=== PATIENT | female | born 1950 | race Caucasian/White ===

== ENCOUNTER 2017-10-03 17:50 | Inpatient (IN) | payer OTHER ==
[~2017-10-03] VITALS: Ht 175.2 cm; Wt 87.5 kg
--- NOTE | ~2017-10-03 | PR ---
[place], [place] PROGRESS NOTE NAME: PAMELA MENARD UNIT #: [id number] ROOM: 311 DOCTOR: STEVE REBOLLEDO MD BIRTHDATE: [birth year] DOS: 10/05/2017 CHIEF COMPLAINT: "Are you the doctor, it's nice to meet you." SUMMARY OF THE VISIT: The patient was interviewed in the dining area where she reclined in a Atser chair watching television. She engaged readily in conversation. She continues to complain of depression and feels very sad and despondent. She also admits to fleeting auditory hallucinations, but denies that they are command in anyway. Sleep and appetite for the most part seem to be normalizing. However, she has episodes of extreme mood lability with verbal and physical aggressiveness and combativeness. Yesterday, she threw her lunch tray, broke dishes and became threatening towards staff. MENTAL STATUS EXAMINATION: This morning, she is alert and oriented to person, place and very approximate to time. Mood does still seem to be depressed and there does seem to be some mood lability present. She admits to continued auditory hallucinations, but is not able to elaborate what the voices are saying. Memory has some minor gaps. PLAN: I will go ahead and increase her Cymbalta from 30 to 60 mg a day to combat the depression, anxiety and pain. I will also increase Exelon patch from 4.6 mg daily to 9.5 mg daily in an effort to maximize potential benefit in improving ADL maintenance, behavior and cognition. I will plan ahead and order Invega Sustenna 234 mg IM to be given on October 07, maintain her current dose of Invega and Clozaril at this point. Monitor for risk, benefit, engage in individual and livingston milieu activity with the plan to return to [facility] when psychiatrically stable. STEVE REBOLLEDO MD CM:PNTRANS 1004 1019 STEVE REBOLLEDO MD 10/05/17 1016 interface
--- NOTE | ~2017-10-03 | PR ---
[place], [place] PROGRESS NOTE NAME: PAMELA MENARD UNIT #: [id number] ROOM: 316 DOCTOR: STEVE REBOLLEDO MD BIRTHDATE: [birth year] DOS: 10/08/2017 CHIEF COMPLAINT: "I want to go home soon." SUMMARY OF THE VISIT: The patient was interviewed in her bedroom. She reports to me that she is feeling better, that the auditory hallucinations have lessened. She is still feeling somewhat depressed, but some of this is now because she is isolated in her room and is homesick and wants to be able to go home soon. She reports improved sleep and appetite. She also denies any medication side effects. MENTAL STATUS: She is alert and oriented. There are some gaps noted. There is no hypomania or carole. There are no overt auditory or visual hallucinations. No delusions, no paranoia. Short term memory has gaps, otherwise she is intact. PLAN: At the present time, I will maintain her current psychotropic regimen, continue to engage in individual and livingston milieu activity with the ultimate plan to return to the least restrictive environment when psychiatrically stable. STEVE REBOLLEDO MD CM:PNTRANS 2 2 STEVE REBOLLEDO MD 10/08/17910 interface
--- NOTE | ~2017-10-03 | PR ---
[place], [place] PROGRESS NOTE NAME: PAMELA MENARD UNIT #: [id number] ROOM: 316 DOCTOR: STEVE REBOLLEDO MD BIRTHDATE: [birth year] DOS: 10/09/2017 CHIEF COMPLAINT: "I want to go home soon." SUMMARY OF THE VISIT: The patient was interviewed in her room. She rested quietly in bed. She had completed her breakfast and was engaging in conversation with me. She reports that she is feeling better that the depression is lifting and she is just homesick now. She notes no auditory hallucinations. She convincingly denies medication side effects. MENTAL STATUS: She is alert and oriented with time gaps. Mood does seem to be trending towards euthymia. Affect is more appropriate. There is no carole or hypomania. There are no overt auditory or visual hallucinations, delusions or paranoia. Short-term memory has gaps, otherwise she is intact. PLAN: I will maintain her current psychotropic regimen, continue to engage in individual and livingston milieu activity with the ultimate plan to return to [facility] when psychiatrically stable. STEVE REBOLLEDO MD CM:PNTRANS [id number] STEVE REBOLLEDO MD 10/09/17 1039 interface
--- NOTE | ~2017-10-03 | PR ---
[place], [place] PROGRESS NOTE NAME: PAMELA MENARD UNIT #: [id number] ROOM: 311 DOCTOR: STEVE REBOLLEDO MD BIRTHDATE: [birth year] DOS: 10/06/2017 CHIEF COMPLAINT: "I feel better. I do not like the food here though." SUMMARY OF THE VISIT: The patient was interviewed as she reclined in a Aster chair watching television in the dining area. She reported to me that she is feeling better. She is sleeping well. She is eating well, although she did state that she does not like the food here as much as she likes it at [facility]. She reports that the auditory hallucinations have dissipated, although I do not trust her to be a good historian. She convincingly denies any medication side effects and no tardive dyskinesia, extrapyramidal symptoms, sedation or somnolence is noted. MENTAL STATUS: The patient is alert and oriented. Mood does seem to be trending towards euthymia. Affect is more appropriate. There is no carole or hypomania. She denies auditory or visual hallucinations. There is no paranoia. Memory for the most part is intact. PLAN: I will go ahead and load her today with Invega Sustenna 234 mg IM rather than waiting until tomorrow. This will allow me to do a secondary loading dose on Tuesday and return her back to [facility] quicker. She is tolerating the medication well, so I see no reason why we cannot speed the loading process. We will engage in individual and livingston milieu activity, returning then to [facility] when stable. STEVE REBOLLEDO MD CM:PNTRANS 4 5 STEVE REBOLLEDO MD 10/06/1724 interface
--- NOTE | ~2017-10-03 | DS ---
[place], [place] DISCHARGE SUMMARY NAME: PAMELA MENARD UNIT #: [id number] ROOM: 316 DOCTOR: STEVE REBOLLEDO MD BIRTHDATE: [birth year] DOS: 10/11/2017 CHIEF COMPLAINT: "Oh, I just want to sleep, leave me alone." HISTORY OF PRESENT ILLNESS: This is a 67-year-old white female who is a resident of [facility] in [place], [place]. The patient has a lengthy history of schizoaffective disorder and recently had a significant decline in mental status. The patient has been refusing to eat, refusing to attend to ADLs, refusing her medications. She has been throwing objects and responding to auditory hallucinations. Most recently, she was admitted to [facility] for similar behavioral disturbances and found to have UTI and was treated. She also had a nonocclusive DVT in her left upper extremity. She returned back to [facility] and was initially somewhat euthymic, but quickly decompensated to the point where she was again not sleeping and eating and again responding to auditory command hallucinations. Given the fact that she represented a significant harm to self and others, she was readmitted to the psych unit now here in [place] to rule out further organic factors and to stabilize on medication while we engage in individual and livingston milieu activity. PAST MEDICAL HISTORY: Remarkable for breast cancer, congestive heart failure, chronic kidney disease, COPD, hyperlipidemia, hypertension, GERD, gout, hypothyroidism, iron deficiency anemia, seizure disorder and her lengthy history of schizoaffective disorder with multiple psychiatric admissions. SUMMARY OF HOSPITAL COURSE: The patient was admitted to the unit where her Clozaril was changed from 100 mg twice daily to 200 mg at bedtime in an effort to simplify her drug regimen and decrease the possibility of daytime sedation. Cymbalta 30 mg at bedtime was added and quickly increased to a maximum of 90 mg a day in order to combat the depression as well as to decrease her pain, which she did state was one of the things that led her to be increasingly more agitated and upset. Given the fact that she becomes episodically noncompliant with her medicine, I did start her on Invega 6 mg in the morning and after several days loaded her with Invega Sustenna 234 mg IM and subsequently reloaded with 156 mg several days later. This had a dramatic improvement on her overall sense of well being. The auditory hallucinations completely ceased. She was able to attend her ADLs better. Sleep and appetite normalized. She was able to do groups and interact more appropriately. Towards the latter part of her stay, she was diagnosed with a urinary tract infection that required her to be in isolation. She remained in good spirits, continued to be compliant with all aspects of her care. The patient had improved sufficiently by October 11 to return back to [facility] where I will follow her upon her return. MENTAL STATUS AT DISCHARGE: The patient is alert and oriented with some time gaps. Mood is euthymic. Affect is appropriate. No carole or hypomania or psychosis is noted. No tardive dyskinesia, extrapyramidal symptoms, sedation or somnolence. Memory has some mild gaps, otherwise she is intact. DIAGNOSIS: Schizoaffective disorder. PLAN: All of her prescriptions have been e scribed to the institutional [place], [place] DISCHARGE SUMMARY NAME: PAMELA MENARD UNIT #: [id number] ROOM: [facility] DOCTOR: STEVE REBOLLEDO MD BIRTHDATE: [birth year] pharmacy, [facility]. The patient will return to [facility]. I will follow her upon her return. She is medically and psychiatrically stable and her psychosocial needs are being met adequately at [facility]. STEVE REBOLLEDO MD CM:BIN 1026 1037 STEVE REBOLLEDO MD 10/11/17 1034 interface
--- NOTE | ~2017-10-03 | PR ---
[place], [place] PROGRESS NOTE NAME: PAMELA MENARD UNIT #: [id number] ROOM: 311 DOCTOR: STEVE REBOLLEDO MD BIRTHDATE: [birth year] DOS: 10/07/2017 CHIEF COMPLAINT: "I am still so depressed." SUMMARY OF THE VISIT: The patient was interviewed in the dining area. She had completed her breakfast and was sitting watching television. She engaged readily in conversation. She reports that the auditory hallucinations have dissipated, but she is still feeling sad and depressed. Sleep and appetite vary. She does not feel like getting up and doing much or interacting with others. She convincingly denies medication side effects. MENTAL STATUS: She is alert and oriented with time gaps. Mood does still seem to be depressed. Affect is flat, blunted and constricted. She denies any psychotic symptoms and I see no carole or hypomania. She does have gaps in short term memory. PLAN: I will go ahead and maximize out the dose of Exelon patch from 9.5 to 13.3 daily. I will increase Cymbalta to 30 mg in the morning and 60 mg at night, combating the depressive symptomatology. She did receive her first dose of Invega Sustenna 234 mg on 10/06/2017. I will go ahead and give her secondary loading dose of Invega Sustenna 156 mg IM on 10/10/2017 and then order her followup Invega Sustenna 156 mg IM on 10/31/2017. We will continue to engage in individual and livingston milieu activities with the plan to return to the least restrictive environment when psychiatrically stable. STEVE REBOLLEDO MD CM:PNTRANS [id number] STEVE REBOLLEDO MD 10/07/17 0936 interface
--- NOTE | ~2017-10-03 | WRIGHTHP ---
[place], [place] PATIENT HISTORY AND PHYSICAL EXAM NAME: PAMELA MENARD UNIT #: [id number] ROOM: 311 DOCTOR: STEVE REBOLLEDO MD BIRTHDATE: [birth year] DOS: 10/04/2017 CHIEF COMPLAINT: "Oh, I just want to sleep leave me alone." HISTORY OF PRESENT ILLNESS: This is a 67-year-old white female who is a resident of [facility] in [place], [place]. The patient has a lengthy history of schizoaffective disorder and most recently had a significant change in mental status. She has been refusing to eat, refusing to attend to ADLs. She has been throwing objects and responding to auditory hallucinations. Most recently, she was admitted to [facility] for similar behavioral disturbances and found to have a UTI and was treated. She also had a nonocclusive DVT in the left upper extremity. She returned back to [facility] and initially was somewhat euthymic, but very quickly decompensated to the point where she was not sleeping, eating. She was responding to auditory hallucinations that were command in nature and following what the commands were telling her she was throwing herself to the ground. She represented a significant risk of harm to self and others and therefore was admitted to the behavioral healthcare unit to rule out further organic factors, to stabilize on medication, to engage in individual and livingston milieu activity with the plan to return to [facility] when psychiatrically stable. PAST MEDICAL HISTORY: Remarkable for breast cancer, congestive heart failure, chronic kidney disease, COPD, hyperlipidemia, hypertension, GERD, gout, hypothyroidism, iron deficiency anemia, seizure disorder and a lengthy history of schizoaffective disorder. MENTAL STATUS: My mental status was somewhat limited because the patient refused to cooperate. She did not even make eye contact, instead lay in bed with her back towards me. She was not agitated or aggressive in any manner, just rather dismissive. She preferred to have us leave and come back later. She was not interested in me obtaining her breakfast or anything to drink. She was rather short and terse. Beyond that, I could not obtain much information from her. DIAGNOSIS: Schizoaffective disorder. PLAN: I have moved her Clozaril from 100 mg b.i.d. to 200 mg at bedtime trying to lessen daytime sedation. I will add Cymbalta 30 mg at bedtime as an antidepressant and also as an agent to help decrease her pain. I have also added Invega 6 mg in the morning as an augmenting agent for the Clozaril to break the psychosis. My sense is because she is episodically noncompliant with her oral meds, I can utilize the Invega Sustenna to improve compliance. We will attempt at best to engage her in individual and livingston milieu activity, returning then to [facility] when stable. [place], [place] PATIENT HISTORY AND PHYSICAL EXAM NAME: PAMELA MENARD UNIT #: [id number] ROOM: 311 DOCTOR: STEVE REBOLLEDO MD BIRTHDATE: [birth year] STEVE REBOLLEDO MD CM:HISPHYS:PATIENT HISTORY AND PHYSICAL EXAMINATION 0942 1021 STEVE REBOLLEDO MD 10/04/17 1019 interface
--- NOTE | ~2017-10-03 | PR ---
[place], [place] PROGRESS NOTE NAME: PAMELA MENARD UNIT #: [id number] ROOM: 316 DOCTOR: STEVE ROCHA MD BIRTHDATE: [birth year] DOS: 10/10/2017 CHIEF COMPLAINT: "Hey, Dr. Rocha, am I gonna get to go home soon." SUMMARY OF THE VISIT: The patient was interviewed as she rested quietly in bed. She engaged readily in conversation and was bright, pleasant and cooperative. She offered no complaints, stating that she is sleeping well and eating well. She is just anxious to return back to [facility], which has been her home for many, many years. She does seem to be trending significantly towards euthymia. MENTAL STATUS: She is alert and oriented. Mood does seem to be more euthymic. Affect is more appropriate. There is no carole or hypomania. There are no psychotic symptoms. Memory for the most part is intact with some mild gaps. There is no tardive dyskinesia, extrapyramidal symptoms, or any other side effects noted from the medications themselves. PLAN: I will maintain her current psychotropic regimen, continue to attempt to engage in individual and livingston milieu activity with the plan to return back to [facility] when psychiatrically stable. STEVE ROCHA MD CM:PNTRANS [id number] STEVE ROCHA MD 10/10/17 1015 interface
[2017-10-03] MEDS ORDERED: ACIDOPHILUS1 EAC4 PO (18:02)
[2017-10-03] MEDS ORDERED: ALLOPURINOL100 MG PO (18:03)
[2017-10-03] MEDS ORDERED: LIPITOR20 MG PO (18:05)
[2017-10-03] MEDS ORDERED: PULMICORT RESP0.5 M1 INH (18:28)
[2017-10-03] MEDS ORDERED: CLOPIDOGREL75 MG PO (18:29)
[2017-10-03] MEDS ORDERED: CLOZAPINE100 MG PO (18:30)
[2017-10-03] MEDS ORDERED: DOCUSATE SODIU100 M2 PO (18:32)
[2017-10-03] MEDS ORDERED: DILANTIN100 MG PO (18:33)
[2017-10-03] MEDS ORDERED: ISOSORBIDE MONO30 MG PO (18:34)
[2017-10-03] MEDS ORDERED: LASIX40 MG PO (18:35)
[2017-10-03] MEDS ORDERED: LACTULOSE20 GM/30 M PO (18:35)
[2017-10-03] MEDS ORDERED: LETROZOLE2.5 MG PO (18:36)
[2017-10-03] MEDS ORDERED: MAGNESIUM400 MG PO (18:37)
[2017-10-03] MEDS ORDERED: LEVOTHYROXINE50 MCG PO (18:37)
[2017-10-03] MEDS ORDERED: PROTONIX40 MG PO (18:38)
[2017-10-03] MEDS ORDERED: MACROBID100 M1 PO (18:38)
[2017-10-03] MEDS ORDERED: TRAMADOL HCL50 MG PO (18:40)
[2017-10-03] MEDS ORDERED: ARICEPT5 M1 PO (18:42)
[2017-10-03] MEDS ORDERED: ROBITUSSIN5 ML PO (18:42)
[2017-10-03 23:59] VITALS: BP 112/60
[2017-10-04 00:57] VITALS: BP 112/60
[2017-10-04 07:30] LABS: BASO % 0.8 % (0.0-1.0); EOS # 0.2 10*3/uL (0.0-0.4); EOS % 3.7 % (1.0-4.0); HEMATOCRIT 36.3 % (37.0-47.0); HEMOGLOBIN 12.1 g/dl (12.0-16.0); LYMPH # 1.6 10*3/uL (1.3-4.4); LYMPH % 32.5 % (27.0-41.0); MEAN CELL VOLUME 98.6 fl (81.0-99.0); MEAN CORPUSCULAR HGB 32.9 pg (27.0-31.0); MEAN CORPUSCULAR HGB CONC 33.3 g/dl (33.0-37.0); MEAN PLATELET VOLUME 10.1 fl (9.6-12.3); MONO # 0.4 10*3/uL (0.1-1.0); MONO % 8.9 % (3.0-9.0); NEUT # 2.6 10*3/uL (2.3-7.9); NEUT % 53.5 % (47.0-73.0); PLATELET COUNT AUTOMATED 159 10*3/uL (130-400); RED BLOOD COUNT 3.68 10*6/uL (4.10-5.10); WHITE BLOOD COUNT 4.9 10*3/uL (4.8-10.8)
[2017-10-04 07:55] LABS: ALBUMIN 3.2 gm/dl (3.1-4.5); ALKALINE PHOSPHATASE 178 U/L (45-117); BUN 21 mg/dl (7-24); CHLORIDE 104 mmol/L (98-107); CHOLESTEROL 178 mg/dL (<200); CREATININE 1.08 mg/dL (0.55-1.02); HDL CHOLESTEROL 31 mg/dl (40-60); LDL CHOLESTEROL 102 mg/dL (9-159); POTASSIUM 4.4 mmol/L (3.5-5.1); SGOT/AST 78 IU/L (3-35); SGPT/ALT 99 U/L (12-78); SODIUM 140 mmol/L (136-145); TOTAL PROTEIN 7.1 gm/dL (6.4-8.2); TRIGLYCERIDES 223 mg/dl (<150); VLDL CHOLESTEROL 45 mg/dL (6-40)
[2017-10-04 07:56] LABS: PHENYTOIN (DILANTIN) 3.3 ug/ml (10-20)
[2017-10-04 08:04] VITALS: BP 118/66
[2017-10-04 08:27] LABS: VITAMIN D, 25-HYDROXY 32.1 ng/mL (30-100)
[2017-10-04 20:00] VITALS: BP 121/64
[2017-10-05 07:59] VITALS: BP 132/64
[2017-10-05 14:11] LABS: BILIRUBIN NEGATIVE (NEGATIVE); BLOOD NEGATIVE (NEGATIVE); CLARITY CLOUDY (CLEAR); COLOR YELLOW (YELLOW); GLUCOSE NEGATIVE (NEGATIVE); KETONE NEGATIVE (NEGATIVE); LEUKO ESTERASE 3+ (NEGATIVE); NITRITE POSITIVE (NEGATIVE); PH 5.5 (5.0-9.0); SPECIFIC GRAVITY 1.015 (1.005-1.030); UROBILINOGEN 0.2 E.U./dl (0.2-1.0)
[2017-10-05 14:18] LABS: BACTERIA 4+; EPITHELIAL CELLS 0-2; RBC 0-2 rbc/hpf (0-2); WBC TNTC wbc/hpf (0-5)
[2017-10-05 20:00] VITALS: BP 109/62
[2017-10-06 08:00] VITALS: BP 110/64
[2017-10-06 19:59] VITALS: BP 122/80
[2017-10-07 07:37] VITALS: BP 112/74
[2017-10-07 20:00] VITALS: BP 114/76
[2017-10-08 07:57] VITALS: BP 150/88
[2017-10-08 20:00] VITALS: BP 148/76
[2017-10-09 08:11] VITALS: BP 152/86
[2017-10-09 20:34] VITALS: BP 118/70
[2017-10-10 07:03] LABS: BASO % 0.2 % (0.0-1.0); EOS # 0.2 10*3/uL (0.0-0.4); EOS % 1.8 % (1.0-4.0); LYMPH # 1.7 10*3/uL (1.3-4.4); LYMPH % 20.3 % (27.0-41.0); MONO # 0.6 10*3/uL (0.1-1.0); MONO % 7.2 % (3.0-9.0); NEUT # 5.8 10*3/uL (2.3-7.9); NEUT % 69.8 % (47.0-73.0); WHITE BLOOD COUNT 8.4 10*3/uL (4.8-10.8)
[2017-10-10 07:48] VITALS: BP 120/76
[2017-10-10 19:50] VITALS: BP 125/78
[2017-10-11 07:40] VITALS: BP 122/78
[2017-10-11] MEDS ORDERED: CLOZAPINE100 MG PO (10:19)
[2017-10-11] MEDS ORDERED: DULOXETINE HCL30 MG PO (10:19)
[2017-10-11] MEDS ORDERED: LACTULOSE20 GM/30 M PO (10:19)
[2017-10-11] MEDS ORDERED: EXELON13.3 MG/21 T (10:19)
[2017-10-11] MEDS ORDERED: DULOXETINE HCL60 MG PO (10:19)
[2017-10-11] MEDS ORDERED: PALIPERIDONE ER6 MG PO (10:19)
[2017-10-11] MEDS ORDERED: INVEGA SUSTENN156 MG IM (10:19)
== END 2017-10-11 15:15 | DRG 885 ==
LOC: 3N 17:50
PROVIDERS: Psychiatry & Neurology Psychiatry
DX: F25.9 Schizoaffective disorder, unspecified (principal); I50.9 Heart failure, unspecified; J44.9 Chronic obstructive pulmonary disease, unspecified; I13.0 Hypertensive heart and chronic kidney disease with heart failure and stage 1 through stage 4 chronic kidney disease, or unspecified chronic kidney disease; D50.9 Iron deficiency anemia, unspecified; E03.9 Hypothyroidism, unspecified; E78.5 Hyperlipidemia, unspecified; F17.210 Nicotine dependence, cigarettes, uncomplicated; N39.0 Urinary tract infection, site not specified; F29 Unspecified psychosis not due to a substance or known physiological condition; K21.9 Gastro-esophageal reflux disease without esophagitis; N18.9 Chronic kidney disease, unspecified; M10.9 Gout, unspecified; F32.9 Major depressive disorder, single episode, unspecified; F41.9 Anxiety disorder, unspecified; B96.20 Unspecified Escherichia coli [E. coli] as the cause of diseases classified elsewhere; G40.909 Epilepsy, unspecified, not intractable, without status epilepticus; Z16.12 Extended spectrum beta lactamase (ESBL) resistance; Z85.3 Personal history of malignant neoplasm of breast; Z87.440 Personal history of urinary (tract) infections; Z86.718 Personal history of other venous thrombosis and embolism; Z90.710 Acquired absence of both cervix and uterus; Z90.12 Acquired absence of left breast and nipple; Z80.9 Family history of malignant neoplasm, unspecified; Z88.5 Allergy status to narcotic agent; Z88.0 Allergy status to penicillin; Z88.2 Allergy status to sulfonamides; Z88.8 Allergy status to other drugs, medicaments and biological substances; Z79.899 Other long term (current) drug therapy; Z79.02 Long term (current) use of antithrombotics/antiplatelets

== ENCOUNTER 2018-01-25 20:24 | Inpatient (IN) | payer OTHER ==
[~2018-01-25] VITALS: Ht 167.6 cm; Wt 72.6 kg
--- NOTE | ~2018-01-25 | CON ---
[place], [place] REPORT OF CONSULTATION NAME: PAMELA MENARD UNIT #: [id number] ROOM: 421 DOCTOR: STEVE REBOLLEDO MD BIRTHDATE: [birth year] DOS: 01/26/2018 PSYCHIATRIC CONSULT CHIEF COMPLAINT: The patient was nonverbal. HISTORY OF PRESENT ILLNESS: This is a 67-year-old white female known to me from her stay at [facility] as well as admissions here to the [facility]. The patient was regressing while at [place] episodically, noncompliant with her medications, lying in a position in her bed. She was to be admitted to the [facility] but first needed to be cleared medically in the Emergency Room at [facility]. When in the Emergency Room, the patient was found to have a significant UTI and it was felt at this point that her medical treatment outweighed her need for psychiatric treatment. PAST MEDICAL HISTORY: Rather lengthy and includes a history of breast cancer, CHF, COPD, ESBL, hypertension, GERD, gout, DVT, hypothyroidism, iron deficiency anemia, obesity and seizure disorder. SOCIAL HISTORY: Does not drink alcohol, use illicit drugs. She smokes 8 cigarettes per day. She lives out. ALLERGIES: To PENICILLIN, SULFA, HALDOL, LORAZEPAM, MORPHINE, and SEPTRA. MENTAL STATUS: Limited. The patient was lying in bed in the position. I called out her name multiple times. She did not even open her eyes. Her breakfast tray was there and it was untouched. Nurses' notes indicate that the patient has been minimally responsive since her admission here to the medical floor at [facility]. DIAGNOSIS: Schizoaffective disorder. PLAN: I will simplify her medication regimen and discontinue her BuSpar, maintaining her just on the Invega. When she is medically stable, I will be happy to admit her to the [facility] for further evaluation and treatment. STEVE REBOLLEDO MD CM:CONSTR:REPORT OF CONSULTATION 01/26/18 1216 interface
[~2018-01-25 20:24] MED LIST: ACIDOPHILUS1 EAC4 PO; ALLOPURINOL100 MG PO; ARICEPT5 M1 PO; CLOPIDOGREL75 MG PO; CLOZAPINE100 MG PO; DILANTIN100 MG PO; DOCUSATE SODIU100 M2 PO; DULOXETINE HCL30 MG PO; DULOXETINE HCL60 MG PO; EXELON13.3 MG/21 T; INVEGA SUSTENN156 MG IM; ISOSORBIDE MONO30 MG PO; LACTULOSE20 GM/30 M PO; LASIX40 MG PO; LETROZOLE2.5 MG PO; LEVOTHYROXINE50 MCG PO; LIPITOR20 MG PO; MACROBID100 M1 PO; MAGNESIUM400 MG PO; PALIPERIDONE ER6 MG PO; PROTONIX40 MG PO; PULMICORT RESP0.5 M1 INH; ROBITUSSIN5 ML PO; TRAMADOL HCL50 MG PO
[2018-01-25 20:28] VITALS: BP 121/49
[2018-01-25] MEDS ORDERED: LIPITOR20 MG PO (20:42)
[2018-01-25] MEDS ORDERED: PULMICORT RESP0.5 M1 INH (20:42)
[2018-01-25] MEDS ORDERED: ACIDOPHILUS1 EAC4 PO (20:42)
[2018-01-25] MEDS ORDERED: BUSPAR5 MG PO (20:43)
[2018-01-25] MEDS ORDERED: CLOPIDOGREL75 MG PO (20:43)
[2018-01-25] MEDS ORDERED: CIPRO500 MG PO (20:43)
[2018-01-25] MEDS ORDERED: CLOZAPINE ODT200 MG PO (20:44)
[2018-01-25] MEDS ORDERED: DOCUSOFT-S100 MG PO (20:44)
[2018-01-25] MEDS ORDERED: CYMBALTA60 MG PO (20:45)
[2018-01-25] MEDS ORDERED: CYMBALTA30 MG PO (20:45)
[2018-01-25] MEDS ORDERED: GEODON20 M1 IM (20:46)
[2018-01-25] MEDS ORDERED: IMDUR SA30 MG PO (20:46)
[2018-01-25] MEDS ORDERED: CONSTULOSE10 GM/151 PO (20:47)
[2018-01-25] MEDS ORDERED: LEVOTHYROXINE50 MCG PO (20:47)
[2018-01-25] MEDS ORDERED: FEMARA2.5 MG PO (20:47)
[2018-01-25] MEDS ORDERED: MAGNESIUM OXID400 MG PO (20:49)
[2018-01-25] MEDS ORDERED: PANTOPRAZOLE SO40 MG PO (20:51)
[2018-01-25] MEDS ORDERED: PALIPERIDONE ER9 MG PO (20:51)
[2018-01-25] MEDS ORDERED: PHENYTOIN100 MG PO (20:52)
[2018-01-25] MEDS ORDERED: RIVASTIGMINE1 EAC2 TD (20:53)
[2018-01-25] MEDS ORDERED: VITAMIN D5000 UNI1 PO (20:54)
[2018-01-25 22:11] LABS: BASO % 0.7 % (0.0-1.0); EOS # 0.1 10*3/uL (0.0-0.4); HEMATOCRIT 31.1 % (37.0-47.0); LYMPH # 1.2 10*3/uL (1.3-4.4); MEAN CELL VOLUME 96.9 fl (81.0-99.0); MEAN CORPUSCULAR HGB 31.2 pg (27.0-31.0); MEAN CORPUSCULAR HGB CONC 32.2 g/dl (33.0-37.0); MEAN PLATELET VOLUME 9.8 fl (9.6-12.3); MONO % 16.4 % (3.0-9.0); NEUT # 3.7 10*3/uL (2.3-7.9); NEUT % 60.7 % (47.0-73.0); PLATELET COUNT AUTOMATED 157 10*3/uL (130-400); RED BLOOD COUNT 3.21 10*6/uL (4.10-5.10); RED CELL DISTRI WIDTH 12.6 % (0-14.5); WHITE BLOOD COUNT 6.1 10*3/uL (4.8-10.8)
[2018-01-25 22:26] LABS: ALBUMIN 3.4 gm/dl (3.1-4.5); ALKALINE PHOSPHATASE 143 U/L (45-117); BUN 24 mg/dl (7-24); CHLORIDE 107 mmol/L (98-107); CREATININE 1.64 mg/dL (0.55-1.02); POTASSIUM 5.1 mmol/L (3.5-5.1); SGOT/AST 36 IU/L (3-35); SGPT/ALT 40 U/L (12-78); SODIUM 142 mmol/L (136-145); TOTAL PROTEIN 7.1 gm/dL (6.4-8.2)
[2018-01-25 22:31] LABS: URINE AMPHETAMINES < 1000 (1000ng/ml); URINE BARBITURATES < 200 (200ng/ml); URINE BENZODIAZEPINES < 200 (200ng/ml); URINE CANNABINOIDS (THC) < 50 (50ng/ml); URINE COCAINE < 300 (300ng/ml); URINE METHADONE < 300 (300ng/ml); URINE OPIATES < 300 (300ng/ml)
[2018-01-25 22:32] LABS: ACETAMINOPHEN (TYLENOL) < 2.0 ug/ml (10-30); ETHYL ALCOHOL < 3.0 mg/dl (<3)
[2018-01-25 22:32] LABS: URINE PHENCYCLIDINE < 25 (25ng/ml)
[2018-01-25 22:33] LABS: BILIRUBIN NEGATIVE (NEGATIVE); BLOOD TRACE-INTACT (NEGATIVE); CLARITY SL CLOUDY (CLEAR); COLOR YELLOW (YELLOW); GLUCOSE NEGATIVE (NEGATIVE); KETONE NEGATIVE (NEGATIVE); LEUKO ESTERASE 3+ (NEGATIVE); NITRITE POSITIVE (NEGATIVE); UROBILINOGEN 0.2 E.U./dl (0.2-1.0)
[2018-01-25 22:44] LABS: BACTERIA 2+; WBC TNTC wbc/hpf (0-5)
[2018-01-26] VITALS (7 sets, daily range): BP systolic 90–114; BP diastolic 39–88
[2018-01-26 04:24] LABS: BASO % 0.5 % (0.0-1.0); EOS # 0.1 10*3/uL (0.0-0.4); EOS % 1.4 % (1.0-4.0); HEMATOCRIT 33.2 % (37.0-47.0); HEMOGLOBIN 10.4 g/dl (12.0-16.0); LYMPH # 0.9 10*3/uL (1.3-4.4); LYMPH % 14.3 % (27.0-41.0); MEAN CELL VOLUME 97.9 fl (81.0-99.0); MEAN CORPUSCULAR HGB 30.7 pg (27.0-31.0); MEAN CORPUSCULAR HGB CONC 31.3 g/dl (33.0-37.0); MEAN PLATELET VOLUME 10.2 fl (9.6-12.3); MONO # 0.6 10*3/uL (0.1-1.0); MONO % 10.3 % (3.0-9.0); NEUT # 4.6 10*3/uL (2.3-7.9); NEUT % 73.2 % (47.0-73.0); PLATELET COUNT AUTOMATED 165 10*3/uL (130-400); RED BLOOD COUNT 3.39 10*6/uL (4.10-5.10); RED CELL DISTRI WIDTH 12.7 % (0-14.5); WHITE BLOOD COUNT 6.2 10*3/uL (4.8-10.8)
[2018-01-26 04:39] LABS: ACT PARTIAL THROMBO TIME 23.1 SECONDS (20.8-31.5)
[2018-01-26 04:42] LABS: ALBUMIN 3.4 gm/dl (3.1-4.5); CREATININE 1.64 mg/dL (0.55-1.02); POTASSIUM 4.8 mmol/L (3.5-5.1); TOTAL PROTEIN 7.1 gm/dL (6.4-8.2)
[2018-01-26 07:49] LABS: VITAMIN D, 25-HYDROXY 37.7 ng/mL (30-100)
[2018-01-27] VITALS: BP 132/65
[2018-01-27 08:00] VITALS: BP 125/51
[2018-01-27 12:00] VITALS: BP 123/74
[2018-01-27] MEDS ORDERED: NATURE'S BLEND F1 MG PO ×2 (15:10→17:34)
[2018-01-27] MEDS ORDERED: CLOZAPINE200 MG PO (17:00)
[2018-01-27] MEDS ORDERED: CIPRO500 MG PO (17:09)
[2018-02-08] MEDS ORDERED: EXELON13.3 MG/21 T (10:52)
[2018-02-08] MEDS ORDERED: CLOZAPINE100 MG PO ×2 (10:52)
[2018-02-08] MEDS ORDERED: ARISTADA882 MG/3.2 IM (10:52)
[2018-02-08] MEDS ORDERED: LACTULOSE20 GM/30 M PO (10:52)
[2018-02-08] MEDS ORDERED: MIRTAZAPINE15 M2 PO (10:52)
[2018-02-08] MEDS ORDERED: ARIPIPRAZOLE15 MG PO (10:52)
== END 2018-01-27 17:10 | disposition home health service (06) | DRG 871 ==
LOC: ED 20:24 → 4E 22:55 → EDHOLD 22:55 → 4E 23:14
PROVIDERS: Internal Medicine; Student in an Organized Health Care Education/Training Program
DX: A41.9 Sepsis, unspecified organism (principal); G93.41 Metabolic encephalopathy; N17.0 Acute kidney failure with tubular necrosis; N39.0 Urinary tract infection, site not specified; I13.0 Hypertensive heart and chronic kidney disease with heart failure and stage 1 through stage 4 chronic kidney disease, or unspecified chronic kidney disease; I50.9 Heart failure, unspecified; F25.9 Schizoaffective disorder, unspecified; R31.9 Hematuria, unspecified; G93.89 Other specified disorders of brain; G40.909 Epilepsy, unspecified, not intractable, without status epilepticus; R65.20 Severe sepsis without septic shock; D50.9 Iron deficiency anemia, unspecified; K21.9 Gastro-esophageal reflux disease without esophagitis; J44.9 Chronic obstructive pulmonary disease, unspecified; E78.5 Hyperlipidemia, unspecified; M10.9 Gout, unspecified; E03.9 Hypothyroidism, unspecified; N18.9 Chronic kidney disease, unspecified; R74.0 Nonspecific elevation of levels of transaminase and lactic acid dehydrogenase [LDH]; R74.8 Abnormal levels of other serum enzymes; E66.3 Overweight; Z98.2 Presence of cerebrospinal fluid drainage device; Z90.12 Acquired absence of left breast and nipple; Z90.710 Acquired absence of both cervix and uterus; Z88.2 Allergy status to sulfonamides; Z88.6 Allergy status to analgesic agent; Z86.718 Personal history of other venous thrombosis and embolism; Z72.0 Tobacco use; Z88.8 Allergy status to other drugs, medicaments and biological substances; Z79.899 Other long term (current) drug therapy; Z88.0 Allergy status to penicillin; Z85.3 Personal history of malignant neoplasm of breast; Z87.440 Personal history of urinary (tract) infections; Z80.8 Family history of malignant neoplasm of other organs or systems; Z68.26 Body mass index [BMI] 26.0-26.9, adult

== ENCOUNTER 2018-03-31 19:05 | Inpatient (IN) | payer OTHER ==
[~2018-03-31] VITALS: Ht 175.2 cm; Wt 70.8 kg
--- NOTE | ~2018-03-31 | PR ---
[place], [place] PROGRESS NOTE NAME: PAMELA MENARD UNIT #: [id number] ROOM: 309 DOCTOR: STEVE ROCHA MD BIRTHDATE: [birth year] DOS: 04/03/2018 INTERVAL NOTE CHIEF COMPLAINT: "Oh, hi there Dr. Rocha." SUMMARY OF THE VISIT: The patient was interviewed as she was reclining in a Aster chair, engaging in group activities. She stopped and engaged in conversation with me. She was relatively pleasant and did not scream, yell or voice any complaints. She does seem to be tolerating the current medication regimen well and I see no sedation, somnolence, extrapyramidal symptoms, or other side effects. MENTAL STATUS: She is alert and oriented. Mood does seem to be trending towards euthymia. Affect is more appropriate. There is no gross carole or hypomania. She does have a residual amount of psychotic symptoms present and memory does have gaps. PLAN: I will load with Aristada 882 mg IM today and every 30 days. Increase Depakote sprinkles to 500 mg t.i.d. and discontinue her Invega to simplify her psychopharmacology regimen, engage in individual and livingston milieu activities. STEVE ROCHA MD CM:PNTRANS 1031 12 STEVE ROCHA MD 04/03/18 221 interface
--- NOTE | ~2018-03-31 | PN ---
[place], [place] PROGRESS NOTE NAME: PAMELA MENARD UNIT #: [id number] ROOM: 309 DOCTOR: STEVE REBOLLEDO MD BIRTHDATE: [birth year] DATE: 04/05/[address] REBOLLEDO 05/04/18 0956: Above note reviewed. Agree with observations, recommendations, and overall treatment plan. STEVE REBOLLEDO MD CM:PNTRANS 1002 0754 STEVE REBOLLEDO MD 05/10/18 0754 SHELBY WEINSTEIN MIS.LLR
--- NOTE | ~2018-03-31 | PR ---
[place], [place] PROGRESS NOTE NAME: PAMELA MENARD UNIT #: [id number] ROOM: 309 DOCTOR: STEVE REBOLLEDO MD BIRTHDATE: [birth year] DOS: 04/10/2018 CHIEF COMPLAINT: "Oh good morning doctor." SUMMARY OF THE VISIT: The patient was interviewed in the dining area. She has completed her breakfast and was dozing in her chair. As I approached, she awoke easily and engaged in brief superficial conversation, reporting no major issues. She did state she is anxious to go back to [facility]. Other than some mild sedation this morning, she notes no other side effects. MENTAL STATUS: She is alert and oriented to person, place, not necessarily time. Mood does seem to be trending towards euthymia. Affect is much more appropriate. There is no carole or hypomania. There are no auditory or visual hallucinations. Memory does have gaps. PLAN: I will go ahead and recheck a valproic acid level as the level has gradually crept up, make certain that is therapeutic and not toxic. We will engage in individual and livingston milieu activity, discharging then to [facility] when psychiatrically stable. STEVE REBOLLEDO MD CM:PNTRANS 1618 STEVE REBOLLEDO MD 04/10/18 1616 interface
--- NOTE | ~2018-03-31 | PN ---
[place], [place] PROGRESS NOTE NAME: PAMELA MENARD UNIT #: [id number] ROOM: 309 DOCTOR: STEVE REBOLLEDO MD BIRTHDATE: [birth year] DATE: 04/04/[address] REBOLLEDO 05/04/18 1002: Above note reviewed. Agree with observations, recommendations, and overall treatment plan. STEVE REBOLLEDO MD CM:PNTRANS 1002 0754 STEVE REBOLLEDO MD 05/10/18 0754 SHELBY WEINSTEIN MIS.LLR
--- NOTE | ~2018-03-31 | PR ---
[place], [place] PROGRESS NOTE NAME: PAMELA MENARD UNIT #: [id number] ROOM: 309 DOCTOR: STEVE REBOLLEDO MD BIRTHDATE: [birth year] DOS: 04/08/2018 CHIEF COMPLAINT: "I am feeling better; I get to go to [place] soon." SUMMARY OF THE VISIT: The patient was interviewed as she was sitting quietly in the dining area, waiting for breakfast. She engaged readily in conversation and reported that she slept well and overall has been feeling much better. She voices willingness and a readiness to be able to return back to her home at [facility] in [place], [place]. She notes no side effects from the medicines, denying any sedation, somnolence, extrapyramidal symptoms or tardive dyskinesia. MENTAL STATUS: She is alert and oriented with time gaps. Mood does seem to be trending towards euthymia. Affect is much more appropriate. There is no carole or hypomania. There are no overt auditory or visual hallucinations. No delusions were voiced. No paranoia seems present. Short term memory has gaps. PLAN: I will continue increasing her Namenda, bringing the dose from 5 mg a day to 5 mg twice a day to augment the effectiveness of the Exelon patch. Her vitamin B12 level is low normal. I will go ahead and augment with vitamin B12 injection just to be safe utilizing 1000 mcg monthly, engage in individual and livingston milieu activity, returning to the least restrictive environment when psychiatrically stable. STEVE REBOLLEDO MD CM:PNTRANS 0735 1503 STEVE REBOLLEDO MD 04/08/18 1501 interface
--- NOTE | ~2018-03-31 | DS ---
[place], [place] DISCHARGE SUMMARY NAME: PAMELA MENARD UNIT #: [id number] ROOM: 309 DOCTOR: STEVE REBOLLEDO MD BIRTHDATE: [birth year] DOS: 04/11/2018 CHIEF COMPLAINT: "I am not getting my blood drawn until I talked to the doctor." HISTORY OF PRESENT ILLNESS: This is a 67-year-old white female well known to me from previous admissions here to the [facility] as well as her stay at [facility]. She is admitted now due to an increase in depression with suicidal ideation. The patient had been banging her head up against the wall and the floor, repeatedly saying that she wanted to and that the voices were so bad that she needed to find a way to stop them. The patient was very upset and could not be consoled. The staff at [place] felt that an inpatient stabilization was warranted, so that she did not hurt herself. She was admitted to rule out organic factors to stabilize on medication, to engage in individual and livingston milieu activity, to return then to the least restrictive environment. SUMMARY OF HOSPITAL COURSE: The patient was admitted to the unit where she was maintained on Clozaril, Abilify and Aristada. Her antidepressant Remeron was discontinued in lieu of Pristiq 50 mg in the morning. This was later increased to 100 mg in the morning. With this change in medication, her mood did brighten. It was also noted that the patient had significant cognitive issues and short-term memory problems. She repeated herself frequently. Namenda and Exelon patch were both started and both were rapidly titrated up to their maximum dose. With the Exelon patch being brought up to 13.3 mg a day and Namenda to 10 mg twice a day. These impacted positively on her mental status. She became much more engaging in conversation, able to remember what she was doing and able to interact more appropriately. She tolerated the medication regimen well and voiced a willingness and a readiness to return back to [facility]. MENTAL STATUS AT DISCHARGE: She is alert and oriented with just some time gaps. Mood was strongly trending towards euthymia. Affect was much more appropriate. There was no carole or hypomania. There are no gross psychotic symptoms. She no longer was suicidal, homicidal, or self-injurious. Short term memory had some gaps. FINAL DIAGNOSES: Schizoaffective disorder and Alzheimer's dementia. DISPOSITION: All of her prescriptions have been E-scribed to [facility]. She will return to [facility]. I will be her treating psychiatrist upon her admission there. Medically, there were no acute issues and psychiatrically she is stabilized and in good condition. [place], [place] DISCHARGE SUMMARY NAME: PAMELA MENARD UNIT #: [id number] ROOM: 309 DOCTOR: STEVE REBOLLEDO MD BIRTHDATE: [birth year] STEVE REBOLLEDO MD CM:DISCHARG [id number] STEVE REBOLLEDO MD 04/11/18 1352 interface
--- NOTE | ~2018-03-31 | PR ---
[place], [place] PROGRESS NOTE NAME: PAMELA MENARD UNIT #: [id number] ROOM: 309 DOCTOR: STEVE REBOLLEDO MD BIRTHDATE: [birth year] DOS: 04/07/2018 CHIEF COMPLAINT: "I slept okay I feel warm I am okay." SUMMARY OF THE VISIT: The patient was interviewed as she was reclining in a Aster chair in the dining area. She had completed her breakfast. She engaged readily in conversation, reporting that she slept well and overall is feeling better. I do note cognitive decline with significant memory loss and some repetitiveness. She voices no side effects from the medications and feels that they are working well. MENTAL STATUS: She is alert and oriented to person, place, approximate to time only. Mood does seem to be trending towards euthymia and affect is more appropriate. There is no carole or hypomania. No gross psychotic symptoms. Memory has gaps. PLAN: I will now, add Namenda to augment the effectiveness of the Exelon patch. Maintain her Aristada and Abilify and her clozapine. Engage in individual and livingston milieu activities, returning to the least restrictive environment when psychiatrically stable. STEVE REBOLLEDO MD CM:PNTRANS 9 9 STEVE REBOLLEDO MD 04/07/18917 interface
--- NOTE | ~2018-03-31 | PN ---
[place], [place] PROGRESS NOTE NAME: PAMELA MENARD UNIT #: [id number] ROOM: 309 DOCTOR: STEVE REBOLLEDO MD BIRTHDATE: [birth year] DATE: 04/06/[address] REBOLLEDO 05/04/18 1002: Above note reviewed. Agree with observations, recommendations, and overall treatment plan. STEVE REBOLLEDO MD CM:PNTRANS [id number] STEVE REBOLLEDO MD 05/10/18 0755 [facility] M[facility].LLR
--- NOTE | ~2018-03-31 | PR ---
[place], [place] PROGRESS NOTE NAME: PAMELA MENARD UNIT #: [id number] ROOM: 309 DOCTOR: STEVE REBOLLEDO MD BIRTHDATE: [birth year] DOS: 04/09/2018 CHIEF COMPLAINT: "Oh, hi doctor, how are you?" SUMMARY OF THE VISIT: The patient was interviewed as she was reclining in a Aster chair sitting in the quiet room. She engaged readily in conversation and voiced no complaints. She seems to be trending towards euthymia and is improving day by day. She does have gaps in her memory; however, which are becoming more evident. MENTAL STATUS: She is alert and oriented to person, place, not time. Mood does seem to be trending towards euthymia. Affect is more appropriate. There is no carole, hypomania or psychosis. Short-term memory has gaps. PLAN: I will increase the Namenda to 10 mg b.i.d. maximizing out the dose augmenting the effectiveness of the Exelon patch at 13.3 mg a day. STEVE REBOLLEDO MD CM:PNTRANS 2 23 STEVE REBOLLEDO MD 04/09/182220 interface
[~2018-03-31 19:05] MED LIST changes: +ARIPIPRAZOLE15 MG PO; +ARISTADA882 MG/3.2 IM; +BUSPAR5 MG PO; +CIPRO500 MG PO; +CLOZAPINE ODT200 MG PO; +CLOZAPINE200 MG PO; +CONSTULOSE10 GM/151 PO; +CYMBALTA30 MG PO; +CYMBALTA60 MG PO; +DOCUSOFT-S100 MG PO; +FEMARA2.5 MG PO; +GEODON20 M1 IM; +IMDUR SA30 MG PO; +MAGNESIUM OXID400 MG PO; +MIRTAZAPINE15 M2 PO; +NATURE'S BLEND F1 MG PO; +PALIPERIDONE ER9 MG PO; +PANTOPRAZOLE SO40 MG PO; +PHENYTOIN100 MG PO; +RIVASTIGMINE1 EAC2 TD; +VITAMIN D5000 UNI1 PO
[2018-03-31 19:12] VITALS: BP 137/76
[2018-03-31] MEDS ORDERED: KETOROLAC10 MG PO (21:25)
[2018-03-31 21:56] VITALS: BP 121/52
[2018-03-31 22:06] LABS: BILIRUBIN NEGATIVE (NEGATIVE); BLOOD NEGATIVE (NEGATIVE); CLARITY CLEAR (CLEAR); COLOR YELLOW (YELLOW); GLUCOSE NEGATIVE (NEGATIVE); KETONE NEGATIVE (NEGATIVE); LEUKO ESTERASE 1+ (NEGATIVE); NITRITE NEGATIVE (NEGATIVE); UROBILINOGEN 0.2 E.U./dl (0.2-1.0)
[2018-03-31 22:18] LABS: URINE AMPHETAMINES < 1000 (1000ng/ml); URINE BARBITURATES < 200 (200ng/ml); URINE BENZODIAZEPINES < 200 (200ng/ml); URINE CANNABINOIDS (THC) < 50 (50ng/ml); URINE COCAINE < 300 (300ng/ml); URINE METHADONE < 300 (300ng/ml); URINE OPIATES < 300 (300ng/ml)
[2018-03-31 22:19] LABS: URINE PHENCYCLIDINE < 25 (25ng/ml)
[2018-03-31] MEDS ORDERED: LACTULOSE20 GM/30 M PO (23:19)
[2018-03-31] MEDS ORDERED: DEPAKOTE250 MG PO (23:24)
[2018-03-31] MEDS ORDERED: GEODON20 M1 IM (23:25)
[2018-04-01] MEDS ORDERED: MACROBID100 M1 PO (01:01)
[2018-04-01 07:50] VITALS: BP 150/82
[2018-04-01 08:10] LABS: BASO % 0.5 % (0.0-1.0); HEMATOCRIT 32.2 % (37.0-47.0); HEMOGLOBIN 10.1 g/dl (12.0-16.0); MEAN CORPUSCULAR HGB 31.4 pg (27.0-31.0); MEAN CORPUSCULAR HGB CONC 31.4 g/dl (33.0-37.0); MEAN PLATELET VOLUME 9.7 fl (9.6-12.3); MONO # 0.5 10*3/uL (0.1-1.0); MONO % 11.5 % (3.0-9.0); NEUT # 2.6 10*3/uL (2.3-7.9); NEUT % 62.8 % (47.0-73.0); PLATELET COUNT AUTOMATED 128 10*3/uL (130-400); RED BLOOD COUNT 3.22 10*6/uL (4.10-5.10); RED CELL DISTRI WIDTH 13.2 % (0-14.5); WHITE BLOOD COUNT 4.1 10*3/uL (4.8-10.8)
[2018-04-01 08:24] LABS: ALBUMIN 3.2 gm/dl (3.1-4.5); CREATININE 1.23 mg/dL (0.55-1.02); POTASSIUM 5.2 mmol/L (3.5-5.1); TOTAL PROTEIN 6.8 gm/dL (6.4-8.2)
[2018-04-01 08:31] LABS: THYROID STIM HORMONE (HS) 3.86 uIU/ml (0.358-4.75)
[2018-04-01 09:26] LABS: VITAMIN D, 25-HYDROXY 21.8 ng/mL (30-100)
[2018-04-01 19:52] VITALS: BP 138/72
[2018-04-02 07:54] VITALS: BP 124/64
[2018-04-02 13:38] LABS: BILIRUBIN NEGATIVE (NEGATIVE); CLARITY CLOUDY (CLEAR); COLOR YELLOW (YELLOW); GLUCOSE NEGATIVE (NEGATIVE); KETONE NEGATIVE (NEGATIVE); SPECIFIC GRAVITY 1.005 (1.005-1.030)
[2018-04-02 13:39] LABS: BLOOD 1+ (NEGATIVE); LEUKO ESTERASE 3+ (NEGATIVE); NITRITE NEGATIVE (NEGATIVE); PH 5.5 (5.0-9.0); UROBILINOGEN 0.2 E.U./dl (0.2-1.0)
[2018-04-02 13:45] LABS: BACTERIA 4+; WBC TNTC wbc/hpf (0-5)
[2018-04-02 13:46] LABS: RBC 16-20 rbc/hpf (0-2)
[2018-04-02 19:50] VITALS: BP 130/69
[2018-04-03 08:07] VITALS: BP 134/68
[2018-04-03 20:06] VITALS: BP 132/70
[2018-04-04 08:00] VITALS: BP 126/65
[2018-04-04 19:46] VITALS: BP 130/70
[2018-04-05 07:33] VITALS: BP 136/68
[2018-04-05 19:39] VITALS: BP 130/64
[2018-04-06 07:33] VITALS: BP 120/69
[2018-04-06 19:47] VITALS: BP 130/66
[2018-04-07 07:05] VITALS: BP 108/82
[2018-04-07 19:52] VITALS: BP 112/74
[2018-04-08 07:52] VITALS: BP 117/70
[2018-04-08 19:39] VITALS: BP 108/71
[2018-04-09 07:46] VITALS: BP 117/65
[2018-04-09 19:53] VITALS: BP 128/65
[2018-04-10 07:47] VITALS: BP 125/63
[2018-04-10 19:21] VITALS: BP 120/74
[2018-04-11 07:31] VITALS: BP 122/76
[2018-04-11] MEDS ORDERED: EXELON13.3 MG/21 T (08:43)
[2018-04-11] MEDS ORDERED: ARIPIPRAZOLE15 MG PO (08:43)
[2018-04-11] MEDS ORDERED: LACTULOSE20 GM/30 M PO (08:43)
[2018-04-11] MEDS ORDERED: PRISTIQ50 MG PO (08:43)
[2018-04-11] MEDS ORDERED: CLOZAPINE100 MG PO ×2 (08:43)
[2018-04-11] MEDS ORDERED: DIVALPROEX SOD500 MG PO (08:43)
[2018-04-11] MEDS ORDERED: Vitamin D PO (08:43)
[2018-04-11] MEDS ORDERED: B121000 MCG/1 IM (08:43)
[2018-04-11] MEDS ORDERED: MEMANTINE HCL10 MG PO (08:43)
[2018-04-11] MEDS ORDERED: ARISTADA882 MG/3.2 IM (08:43)
== END 2018-04-11 15:14 | DRG 885 ==
LOC: ED 19:05 → 3N 04-01 01:46
PROVIDERS: Emergency Medicine Emergency Medical Services; Registered Nurse
DX: F25.9 Schizoaffective disorder, unspecified (principal); F23 Brief psychotic disorder; R45.851 Suicidal ideations; Z71.6 Tobacco abuse counseling; G40.909 Epilepsy, unspecified, not intractable, without status epilepticus; J44.9 Chronic obstructive pulmonary disease, unspecified; E78.5 Hyperlipidemia, unspecified; I11.0 Hypertensive heart disease with heart failure; D50.9 Iron deficiency anemia, unspecified; M1A.9XX0 Chronic gout, unspecified, without tophus (tophi); G30.9 Alzheimer's disease, unspecified; F02.80 Dementia in other diseases classified elsewhere, unspecified severity, without behavioral disturbance, psychotic disturbance, mood disturbance, and anxiety; G93.89 Other specified disorders of brain; E87.5 Hyperkalemia; E55.9 Vitamin D deficiency, unspecified; E87.8 Other disorders of electrolyte and fluid balance, not elsewhere classified; A49.1 Streptococcal infection, unspecified site; I50.9 Heart failure, unspecified; K21.9 Gastro-esophageal reflux disease without esophagitis; E03.9 Hypothyroidism, unspecified; F17.210 Nicotine dependence, cigarettes, uncomplicated; Z88.0 Allergy status to penicillin; Z88.2 Allergy status to sulfonamides; Z88.5 Allergy status to narcotic agent; Z88.8 Allergy status to other drugs, medicaments and biological substances; Z79.899 Other long term (current) drug therapy; Z85.3 Personal history of malignant neoplasm of breast; Z87.440 Personal history of urinary (tract) infections; Z86.718 Personal history of other venous thrombosis and embolism; Z90.710 Acquired absence of both cervix and uterus; Z80.9 Family history of malignant neoplasm, unspecified; Z90.12 Acquired absence of left breast and nipple